=== PATIENT | female | born 1985 | race Two or more races ===

== ENCOUNTER 2017-03-06 17:53 | Emergency (ER) | payer SELFPAY ==
[2017-03-06 18:06] VITALS: BP 136/88; PULSE 151; RESP 18; TEMP 101.2; O2SAT 97
[2017-03-07] MEDS ORDERED: Albuterol 0.083% Inhal Sol (2.5 mg/3 mL) UD ONE (00:17)
== END 2017-03-06 18:45 | disposition left against medical advice (07) ==
LOC: H.ER 17:53
DX: Z02.89 Encounter for other administrative examinations (principal)